=== PATIENT | female | born 1970 | race Caucasian/White ===

== ENCOUNTER 2016-07-24 10:48 | Outpatient (CLI) | payer OTHER | END 2016-07-24 10:49 | disposition home or self-care (01) | DX: Z12.31 Encounter for screening mammogram for malignant neoplasm of breast (principal) ==

== ENCOUNTER 2016-08-20 07:30 | Outpatient (CLI) | payer OTHER | END 2016-08-20 07:31 | DX: R35.0 Frequency of micturition (principal) ==

== ENCOUNTER 2016-08-27 07:30 | Outpatient (CLI) | payer OTHER | END 2016-08-27 07:31 | disposition home or self-care (01) | DX: R35.0 Frequency of micturition (principal) ==

== ENCOUNTER 2016-09-28 09:15 | Outpatient (CLI) | payer OTHER | END 2016-09-28 09:16 | disposition home or self-care (01) | LOC: LAB.R 09:15 | PROVIDERS: ATTEND Physician Assistant Medical | DX: R35.0 Frequency of micturition (principal) | CPT/HCPCS: 87086 ==

== ENCOUNTER 2017-04-03 09:30 | Outpatient (CLI) | payer OTHER | END 2017-04-03 09:31 | disposition home or self-care (01) | LOC: LAB.WCP 09:30 | PROVIDERS: ATTEND Physician Assistant Medical | DX: R35.0 Frequency of micturition (principal) | CPT/HCPCS: 87086 ==

== ENCOUNTER 2017-04-12 17:35 | Outpatient (CLI) | payer OTHER | END 2017-04-12 17:36 | disposition home or self-care (01) | LOC: LAB.R 17:35 | PROVIDERS: ATTEND Physician Assistant Medical | DX: R35.0 Frequency of micturition (principal) | CPT/HCPCS: 87086 ==

== ENCOUNTER 2017-06-14 08:00 | Outpatient (CLI) | payer OTHER ==
[2017-06-14 19:27] LABS: CALCIUM 8.8 mg/dL (8.5-10.3); CREATININE 0.7 mg/dL (0.4-1.0)
== END 2017-06-14 08:01 | disposition home or self-care (01) ==
LOC: LAB.R 08:00
PROVIDERS: ATTEND Family Medicine
DX: I10 Essential (primary) hypertension (principal)
CPT/HCPCS: 80048

== ENCOUNTER 2017-06-14 19:06 | Outpatient (CLI) | payer OTHER | END 2017-06-14 19:07 | disposition home or self-care (01) | LOC: LAB 19:06 | PROVIDERS: ATTEND Family Medicine | DX: Z53.9 Procedure and treatment not carried out, unspecified reason (principal) ==

== ENCOUNTER 2017-06-15 16:40 | Emergency (ER) | payer OTHER ==
[2017-06-15] MEDS ORDERED: LORazepam 2 MG/ML VIAL IVP STA (17:08)
[2017-06-15 17:18] LABS: BASOPHILS # (AUTO) 0.1 10^3/uL (0.0-0.1); BASOPHILS % (AUTO) 1.2 %; EOSINOPHILS # (AUTO) 0.1 10^3/uL (0.0-0.7); EOSINOPHILS % (AUTO) 0.9 %; LYMPHOCYTES # (AUTO) 2.7 10^3/uL (1.5-3.5); LYMPHOCYTES % (AUTO) 39.4 %; MEAN CORPUSCULAR HEMOGLOBIN 25.9 pg (27.0-31.0); MEAN CORPUSCULAR HGB CONC 31.7 g/dL (32.0-36.0); MEAN CORPUSCULAR VOLUME 81.5 fL (81.0-99.0); MEAN PLATELET VOLUME 6.8 fL (7.9-10.8); MONOCYTES # (AUTO) 0.8 10^3/uL (0.0-1.0); MONOCYTES % (AUTO) 11.5 %; NEUTROPHILS # (AUTO) 3.2 10^3/uL (1.5-6.6); PLT - PLATELET COUNT 395 10^3/uL (130-450); RED BLOOD COUNT 5.01 10^6/uL (4.20-5.40); RED CELL DISTRIBUTION WIDTH 15.1 % (12.0-15.0); WHITE BLOOD COUNT 6.8 x10^3/uL (4.8-10.8)
[2017-06-15 17:32] LABS: ALBUMIN 4.1 g/dL (3.2-5.5); ALBUMIN/GLOBULIN RATIO 1.1 (1.0-2.2); BILIRUBIN,TOTAL 0.5 mg/dL (0.2-1.0); CALCIUM 9.4 mg/dL (8.5-10.3); CREATININE 0.7 mg/dL (0.4-1.0)
--- NOTE | 2017-06-15 17:37 | ED Physician Documentation ---
History of Present Illness - Stated complaint Stated Complaint: CHEST PX - Chief complaint Chief Complaint: Cardiac - History obtained from History obtained from: Patient, Family - History of Present Illness Timing: Yesterday Pain level max: 3 Pain level now: 3 - Additonal information Additional information: Patient is a 46-year-old female who presents to the emergency department complaining of chest tightness yesterday and today. She states she feels lightheaded when she stands up. Feels like her vision is occasionally blurry. Has been under increasing amounts of stress lately. Her mother was recently diagnosed with cancer, she recently refinanced her house and is having other life stressors. She saw her PCP yesterday, normal EKG. Lab testing revealed a mild potassium deficiency which was replaced. She then returned for a follow- up today, given GI cocktail which helped her chest pain. She was also started on felodipine for hypertension, today when she got home she took her pulse and it was approximately 120 bpm and regular. She states that that has not happened to her before. Review of Systems Ten Systems: 10 systems reviewed and negative Constitutional: denies: Fever, Chills Ears: denies: Ear pain Nose: denies: Rhinorrhea / runny nose, Congestion Respiratory: denies: Cough, Wheezing GI: denies: Abdominal Pain, Nausea, Vomiting, Diarrhea Skin: denies: Rash Musculoskeletal: denies: Neck pain, Back pain Neurologic: denies: Headache PD PAST MEDICAL HISTORY - Past Medical History Past Medical History: Yes Cardiovascular: Hypertension GI: GERD - Past Surgical History Past Surgical History: No - Allergies Allergies/Adverse Reactions: Allergies Allergy/AdvReac Type Severity Reaction Status Date / Time cephradine Allergy Rash Verified 06/15/17 17:25 iodine Allergy Anaphylaxis Verified 18 17:18 cefradine Allergy Rash Uncoded 06/15/17 17:18 - Social History Does the pt smoke?: Yes Smoking Status: Former smoker Does the pt drink ETOH?: Yes Does the pt have substance abuse?: No - Immunizations Immunizations are current?: Yes PD ED PE NORMAL - Vitals Vital signs reviewed: Yes - General General: Alert and oriented X 3, No acute distress, Well developed/nourished - HEENT HEENT: PERRL, Moist mucous membranes - Neck Neck: Supple, no meningeal sign - Cardiac Cardiac: RRR, Strong equal pulses - Respiratory Respiratory: No respiratory distress, Clear bilaterally - Abdomen Abdomen: Soft, Non tender, Non distended - Derm Derm: Warm and dry, No rash - Extremities Extremities: No edema, No calf tenderness / cord - Neuro Neuro: Alert and oriented X 3 - Psych Psych: Normal mood, Normal affect Results - Vitals Vitals: Vital Signs - 24 hr 06/15/17 06/15/17 06/15/17 16:43 17:57 18:49 Temperature 37.2 C Heart Rate 105 H 86 82 Respiratory 20 18 14 Rate Blood Pressure 130/83 H 128/83 H 136/83 H O2 Saturation 97 98 98 06/15/17 20:19 Temperature 36.8 C Heart Rate 79 Respiratory 16 Rate Blood Pressure 130/86 H O2 Saturation 96 Oxygen O2 Source Room air - EKG (time done) 1655 Rate: Rate (enter#) (98) Rhythm: NSR [place]: Normal Intervals: Normal LA QRS: Normal Ischemia: Normal ST segments - Labs Labs: Laboratory Tests 06/15/17 06/15/17 06/15/17 17:08 17:08 17:08 WBC 6.8 RBC 5.01 Hgb 13.0 Hct 40.8 MCV 81.5 MCH 25.9 L MCHC 31.7 L RDW 15.1 H Plt Count 395 MPV 6.8 L Neut # 3.2 Lymph # 2.7 [place] # 0.8 Eos # 0.1 Baso # 0.1 Absolute Nucleated RBC 0.00 Nucleated RBC % 0.1 D-Dimer 421.0 H Sodium 138 Potassium 3.3 L Chloride 100 L Carbon Dioxide 24 Anion Gap 14.0 H BUN 11 Creatinine 0.7 Estimated GFR (MDRD) 89 Glucose 105 H Calcium 9.4 Total Bilirubin 0.5 AST 27 ALT 28 Alkaline Phosphatase 42 Troponin I Total Protein 8.0 Albumin 4.1 Globulin 3.9 Albumin/Globulin Ratio 1.1 Lipase 23 06/15/17 17:08 WBC RBC Hgb Hct MCV MCH MCHC RDW Plt Count MPV Neut # Lymph # [place] # Eos # Baso # Absolute Nucleated RBC Nucleated RBC % D-Dimer Sodium Potassium Chloride Carbon Dioxide Anion Gap BUN Creatinine Estimated GFR (MDRD) Glucose Calcium Total Bilirubin AST ALT Alkaline Phosphatase Troponin I < 0.04 Total Protein Albumin Globulin Albumin/Globulin Ratio Lipase - Rads (name of study) cxr Radiology: Prelim report reviewed, EMP read contemporaneously, See rad report ( No acute abnormality) CT pulmonary angiogram Radiology: Prelim report reviewed, EMP read contemporaneously, See rad report ( No pulmonary embolism) PD MEDICAL DECISION MAKING - ED course Complexity details: reviewed old records, reviewed results, re-evaluated patient , considered differential (No ST elevation [place], no aortic dissection, no PE, no tension pneumothorax, no aortic aneurysm), d/w patient, d/w family ED course: Patient is a 46-year-old female who presents to the emergency department with what sounds like anxiety and worsening stress at home. Negative troponin after greater than 2 days of symptoms. Normal EKG. Normal chest x-ray. She does have a history of superficial blood clots in the right arm and had an elevated d -dimer therefore a CT pulmonary angiogram was undertaken. She had a history of a reaction to CT contrast that was 24 hours after the contrast administration approximately 20 years ago, this resulted in some throat tightness that resolved with Benadryl. She was therefore premedicated with Solu-Medrol and Benadryl IV and a CT pulmonary angiogram was performed. She had no difficulties with this. No rashes, no dyspnea, no throat swelling or tightness. She will be at home with her family tonight and tomorrow. Will continue supportive care and follow-up with her doctor. We will have her stop the felodipine as well. We will have her to discuss with her doctor possible anxiety medication. Patient and family counseled regarding signs and symptoms for which I believe and urgent re-evaluation would be necessary. Patient with good understanding of and agreement to plan and is comfortable going home at this time This document was made in part using voice recognition software. While efforts are made to proofread this document, sound alike and grammatical errors may occur. Departure - Departure Disposition: 01 Home, Self Care Clinical Impression: Chest pain Qualifiers: Chest pain type: unspecified Qualified Code(s): R07.9 - Chest pain, unspecified Condition: Good Instructions: ED Chest Pain Atypical Unkn Cause Follow-Up: Dolly Hernandez MD [Primary Care Provider] - Within 1 week Comments: Your tests are normal today. Return if you worsen. Stop the felodipine. Discharge Date/Time: 06/15/17 20:27
--- NOTE | 2017-06-15 18:09 | XRAY Report ---
EXAM: CHEST RADIOGRAPHY EXAM DATE: 06/15/2017 05:26 PM. CLINICAL HISTORY: Chest pain and tachycardia. COMPARISON: None available. TECHNIQUE: 1 view. FINDINGS: Lungs/Pleura: No focal opacities evident. No pleural effusion. No pneumothorax. Mediastinum: Within exam limitations, the cardiomediastinal contour is normal. Other: None. IMPRESSION: Grossly clear. [facility] Referring Provider Line: [phone] SITE ID: [id number]
[2017-06-15] MEDS ORDERED: diphenhydrAMINE INJ 50 MG/ML VIAL IVP STA (18:24)
[2017-06-15] MEDS ORDERED: methylPREDNISolone SUCCINATE 125 MG/2 ML VIAL IVP STA (18:24)
[2017-06-15] MEDS ORDERED: IOPAMIDOL-300 100 ML VIAL ONE (18:57)
[2017-06-15] MEDS ORDERED: IOPAMIDOL-300 100 ML VIAL IVP ONE (19:18)
--- NOTE | 2017-06-15 19:52 | CT Report ---
EXAM: CT ANGIOGRAM CHEST EXAM DATE: 06/15/2017 07:19 PM. CLINICAL HISTORY: Chest pain, elevated d-dimer. COMPARISON: Chest radiograph, same day. TECHNIQUE: Routine helical imaging was performed through the chest in the pulmonary arterial phase. I V Contrast: 80 mL Isovue 300. Reconstructions: Coronal 3-D MIP reconstructions.Sagittal and coronal. In accordance with CT protocol optimization, one or more of the following dose reduction techniques w ere utilized for this exam: automated exposure control, adjustment of mA and/or KV based on patient s ize, or use of iterative reconstructive technique. FINDINGS: Pulmonary Arteries: Diagnostic quality: Mildly motion degraded but overall adequate through the segmental arteries. No ev idence for acute or chronic pulmonary emboli. Low lung findings with patchy groundglass density atele ctasis. RV/LV is within normal limits. There is no interventricular septal bowing. There is no reflux of cont rast material in the IVC. Lungs/Pleura: No consolidation, nodules, or edema. No effusions or pneumothorax. Mediastinum: Normal. No cardiac enlargement or adenopathy. Thoracic Aorta: Unremarkable. Upper Abdomen: Small nonobstructing calculus in the upper pole of the left kidney series 5 image 135 measuring 0.3 cm. Other: No acute skeletal abnormalities. IMPRESSION: 1. Negative for evidence of pulmonary embolism. 2. No acute intrathoracic abnormality. [facility] Referring Provider Line: [phone] SITE ID: [id number]
[2017-06-15 23:19] VITALS: BP 130/86
== END 2017-06-15 20:27 | disposition home or self-care (01) ==
LOC: ED 16:40
DX: R07.9 Chest pain, unspecified (principal); I10 Essential (primary) hypertension; Z87.891 Personal history of nicotine dependence
CPT/HCPCS: 36415; 71045; 71275; 80053; 83690; 84484; 85025; 85379; 93005; 96374; 96375; 99284; J2060; Q9967

== ENCOUNTER 2017-06-26 14:49 | Outpatient (CLI) | payer OTHER ==
[2017-06-26 18:55] LABS: BASOPHILS % (AUTO) 0.7 %; EOSINOPHILS % (AUTO) 0.4 %; HGB - HEMOGLOBIN 12.6 g/dL (12.0-16.0); MEAN CORPUSCULAR HEMOGLOBIN 26.4 pg (27.0-31.0); MEAN CORPUSCULAR HGB CONC 32.4 g/dL (32.0-36.0); MEAN CORPUSCULAR VOLUME 81.6 fL (81.0-99.0); MEAN PLATELET VOLUME 7.6 fL (7.9-10.8); MONOCYTES # (AUTO) 0.8 10^3/uL (0.0-1.0); MONOCYTES % (AUTO) 12.7 %; NEUTROPHILS # (AUTO) 3.7 10^3/uL (1.5-6.6); NEUTROPHILS % (AUTO) 56.2 %; PLT - PLATELET COUNT 415 10^3/uL (130-450); RED BLOOD COUNT 4.78 10^6/uL (4.20-5.40); RED CELL DISTRIBUTION WIDTH 15.8 % (12.0-15.0); WHITE BLOOD COUNT 6.5 x10^3/uL (4.8-10.8)
[2017-06-26 19:06] LABS: HB2 TOTAL 13.3 g/dL; HEMOGLOBIN A1C 0.49 g/dL; HEMOGLOBIN A1C % 5.5 % (4.6-6.2)
[2017-06-26 19:11] LABS: ALBUMIN 3.9 g/dL (3.2-5.5); ALBUMIN/GLOBULIN RATIO 1.1 (1.0-2.2); ALKALINE PHOSPHATASE 41 IU/L (42-121); ALT ALANINE AMINOTRANSFERASE 19 IU/L (10-60); AST ASPARTATE AMINOTRANSFERASE 20 IU/L (10-42); BILIRUBIN,TOTAL 0.6 mg/dL (0.2-1.0); BUN - BLOOD UREA NITROGEN 14 mg/dL (6-20); CARBON DIOXIDE - CO2 25 mmol/L (21-32); CHLORIDE 102 mmol/L (101-111); CHOL/HDL RATIO 3.6 (<4.4); CHOLESTEROL 144 mg/dL; CREATININE 0.8 mg/dL (0.4-1.0); GFR - MDRD 77 (>89); GLUCOSE 102 mg/dL (70-100); HDL CHOLESTEROL 40 mg/dL; LDL CHOLESTEROL,CALCULATED 53 mg/dL; LDL/HDL RATIO 1.3 (<4.4); MAGNESIUM 2.1 mg/dL (1.7-2.8); SODIUM 135 mmol/L (135-145); TOTAL PROTEIN 7.6 g/dL (6.7-8.2); VLDL CHOLESTEROL 51 mg/dL
== END 2017-06-26 14:50 | disposition home or self-care (01) ==
LOC: LAB.WCP 14:49
PROVIDERS: ATTEND Family Medicine
DX: Z00.00 Encounter for general adult medical examination without abnormal findings (principal); I10 Essential (primary) hypertension
CPT/HCPCS: 36415; 80053; 80061; 83036; 83721; 83735; 84443; 85025

== ENCOUNTER 2017-08-01 11:15 | Outpatient (CLI) | payer OTHER ==
--- NOTE | 2017-08-02 09:33 | Mammography Report ---
DIGITAL SCREENING MAMMOGRAM: 08/01/2017 HISTORY: Benign left breast biopsy. TECHNIQUE: Bilateral digital CC and MLO projections. COMPARISON: 07/24/2016, 06/15/2015, 03/10/2013 and 06/19/2011. FINDINGS: There are scattered fibroglandular densities. No new dominant mass, architectural distortion, skin thickening, suspicious microcalcifications or interval change. Postbiopsy changes left breast and intramammary lymph nodes right breast as before. IMPRESSION: NEGATIVE. BI-RADS CODE 1-NEGATIVE. SUGGEST RETURN TO ROUTINE SCREENING IN 12 MONTHS. STANDARD QUALIFYING STATEMENTS: 1. This examination was reviewed with the aid of Computer-Aided Detection (CAD). 2. A negative or benign imaging report should not delay biopsy if clinically suspicious findings are present. Consider surgical consultation if warranted. More than 5% of cancers are not identified by imaging. 3. Dense breasts may obscure an underlying neoplasm. TD: 08/02/2017 09:31
== END 2017-08-01 11:16 | disposition home or self-care (01) ==
LOC: DI.N 11:15
PROVIDERS: ATTEND Physician Assistant Medical
DX: Z12.31 Encounter for screening mammogram for malignant neoplasm of breast (principal)
CPT/HCPCS: 77067

== ENCOUNTER 2017-09-26 07:41 | Outpatient (CLI) | payer OTHER ==
[2017-09-26 12:40] LABS: CALCIUM 8.9 mg/dL (8.5-10.3); CREATININE 0.7 mg/dL (0.4-1.0)
== END 2017-09-26 07:42 | disposition home or self-care (01) ==
LOC: LAB.WCP 07:41
PROVIDERS: ATTEND Physician Assistant Medical
DX: I10 Essential (primary) hypertension (principal); E87.6 Hypokalemia
CPT/HCPCS: 36415; 80048; 82088; 84244

== ENCOUNTER 2017-09-30 06:00 | Outpatient (CLI) | payer OTHER ==
[2017-10-03 18:41] LABS: CALCULATED TOTAL (E+NE) URINE 15 (9-74); DOPAMINE URINE 91 (40-390); EPINEPHRINE URINE <2 (2-16); NOREPINEPHRINE URINE 15 (7-65)
[2017-10-05 22:42] LABS: METANEPHRINE 73 mcg/24 h (58-203); NORMETANEPHRINE 211 mcg/24 h (88-649); TOTAL VOLUME 2000 mL
== END 2017-09-30 06:01 | disposition home or self-care (01) ==
LOC: LAB.WCP 06:00
PROVIDERS: ATTEND Physician Assistant Medical
DX: I10 Essential (primary) hypertension (principal)
CPT/HCPCS: 82384; 83835

== ENCOUNTER 2017-10-03 19:51 | Outpatient (CLI) | payer OTHER ==
--- NOTE | 2017-10-04 11:43 | Ultrasound Report ---
RENAL ULTRASOUND: 10/03/2017 HISTORY: Benign essential hypertension. TECHNIQUE: Real-time sonographic vascular imaging was performed by the patternmaker all around through the renal arteries utilizing both color-flow and Doppler flow analysis. Multiple brand representative static images were saved for review. RT KIDNEY RENAL SIZE LT KIDNEY RENAL SIZE Size: 11.9 x 5.5 x 4.8 cm Size: 11.4 x 5.0 x 5.5 cm SEGMENTAL ARTERY SEGMENTAL ARTERY PSV RI PSV RI Upper Pole 56 0.9 Upper Pole 60 0.7 Mid Pole 52.3 0.7 Mid Pole 48.6 0.8 Lower Pole 56.8 0.7 Lower Pole 46.7 0.6 RIGHT RENAL ARTERY LEFT RENAL ARTERY PSV RENAL ARTERY/ AORTA RATIO (RA/AO) PSV RENAL ARTERY/ AORTA RATIO (RA/AO) Origin: 71.4 0.7 Origin: 84 0.8 Proximal: 88 0.9 Proximal: 50.8 0.5 Mid: 283 2.8 Mid: 174 1.7 Distal: 104 1.0 Distal: 97 0.9 PROX AORTA PSV: 101 cm/sec RRV patent: yes LRV patent: yes CRITERIA FOR CLASSIFICATION OF RENAL ARTERY DISEASE BY DUPLEX SCANNING Source: Criteria for Classification of Renal Artery Disease by Duplex Scanning [facility] Duplex Scanning In Vascular Disorders, 4th ed. 2010. Print. RENAL ARTERY DIAMETER REDUCTION RENAL ARTERY PSV RAR Normal < 180 cm/sec < 3.5 < 60% >/= 180 cm/sec < 3.5 >/= 60% >/= 180 cm/sec >/= 3.5 Occlusion (100%) No signal No signal IMPRESSION: NEGATIVE RENAL ARTERIAL DOPPLER ULTRASOUND. [facility]
== END 2017-10-03 19:52 | disposition home or self-care (01) ==
LOC: DI 19:51
PROVIDERS: ATTEND Physician Assistant Medical
DX: I10 Essential (primary) hypertension (principal)
CPT/HCPCS: 93975

== ENCOUNTER 2017-10-03 20:51 | Emergency (ER) | payer OTHER ==
[2017-10-03] MEDS ORDERED: SODIUM CHLORIDE 0.9% 1,000 ML IV ONE (21:35)
[2017-10-03 21:41] LABS: BASOPHILS % (AUTO) 0.5 %; EOSINOPHILS # (AUTO) 0.1 10^3/uL (0.0-0.7); EOSINOPHILS % (AUTO) 0.7 %; HGB - HEMOGLOBIN 12.2 g/dL (12.0-16.0); LYMPHOCYTES # (AUTO) 2.7 10^3/uL (1.5-3.5); LYMPHOCYTES % (AUTO) 37.6 %; MEAN CORPUSCULAR HEMOGLOBIN 26.6 pg (27.0-31.0); MEAN CORPUSCULAR HGB CONC 32.2 g/dL (32.0-36.0); MEAN CORPUSCULAR VOLUME 82.6 fL (81.0-99.0); MEAN PLATELET VOLUME 7.2 fL (7.9-10.8); MONOCYTES # (AUTO) 0.8 10^3/uL (0.0-1.0); MONOCYTES % (AUTO) 11.3 %; NEUTROPHILS # (AUTO) 3.6 10^3/uL (1.5-6.6); NEUTROPHILS % (AUTO) 49.9 %; PLT - PLATELET COUNT 374 10^3/uL (130-450); RED BLOOD COUNT 4.59 10^6/uL (4.20-5.40); RED CELL DISTRIBUTION WIDTH 14.7 % (12.0-15.0); WHITE BLOOD COUNT 7.2 x10^3/uL (4.8-10.8)
[2017-10-03 21:42] LABS: BILIRUBIN,URINE NEGATIVE (NEGATIVE); GLUCOSE, URINE (UA) NEGATIVE (NEGATIVE); KETONES,URINE (UA) NEGATIVE (NEGATIVE); LEUKOCYTE ESTERASE, URINE NEGATIVE (NEGATIVE); NITRITE,URINE NEGATIVE (NEGATIVE); OCCULT BLOOD,URINE NEGATIVE (NEGATIVE); PROTEIN,URINE NEGATIVE (NEGATIVE); UROBILINOGEN,URINE 0.2 (NORMAL) E.U./dL (NORMAL)
[2017-10-03 21:43] LABS: CLARITY,URINE CLEAR (CLEAR)
[2017-10-03 21:52] LABS: ALBUMIN 3.6 g/dL (3.2-5.5); ALBUMIN/GLOBULIN RATIO 0.9 (1.0-2.2); BILIRUBIN,TOTAL 0.7 mg/dL (0.2-1.0); CALCIUM 8.7 mg/dL (8.5-10.3); CREATININE 0.8 mg/dL (0.4-1.0); PHOSPHORUS 2.8 mg/dL (2.5-4.6); TOTAL PROTEIN 7.4 g/dL (6.7-8.2)
[2017-10-03 22:11] LABS: HCG UR QUAL NEGATIVE
[2017-10-03] MEDS ORDERED: hydrALAZINE INJ 20 MG/ML VIAL IVP STA (22:18)
[2017-10-03] MEDS ORDERED: POTASSIUM BICARB 25 MEQ TABLET PO STA (22:18)
--- NOTE | 2017-10-03 22:52 | XRAY Report ---
EXAM: CHEST RADIOGRAPHY EXAM DATE: 10/03/2017 10:22 PM. CLINICAL HISTORY: Chest pain. COMPARISON: Chest 06/15/2017. TECHNIQUE: 1 view. FINDINGS: Lungs/Pleura: No focal opacities evident. No pleural effusion. No pneumothorax. Mediastinum: Within exam limitations, the cardiomediastinal contour is normal. Other: None. IMPRESSION: Normal single view chest. [facility] Referring Provider Line: [phone] SITE ID: [id number]
--- NOTE | 2017-10-03 22:52 | XRAY Preliminary Report ---
Exam: XR CHEST 1 VIEW X-RAY IMPRESSION: Normal single view chest. [facility] SITE ID: [id number]
[2017-10-03] MEDS ORDERED: ACETAMINOPHEN 500 MG TABLET PO STA (22:55)
[2017-10-03] MEDS ORDERED: ONDANSETRON 4 MG/2 ML VIAL IVP STA (22:55)
--- NOTE | 2017-10-03 23:02 | ED Physician Documentation ---
History of Present Illness - Stated complaint Stated Complaint: NAUSEA/DIZZY/HEADACHE - Chief complaint Chief Complaint: General - History obtained from History obtained from: Patient - History of Present Illness Timing: How many weeks ago (8) - Additonal information Additional information: Patient is a 46 year old female with a history of long standing htn who is presenting to the emergency department for generally not feeling well. patient states that over the last 5 months she has had intermittent bouts of hypertension. sometimes she gets dizzy, some times she gets chest pain. Patient has been follow up with her doctor regularly and they have been trying to find the underlying cause. Patient states that this weekend she was feeling ok, but drank a little too much wine. Patient states that has not been feeling well since then. patient saw her pmd today and was coming to the hospital for a renal artery ultrasound. Patient states that she was just feeling lousy so she came to the emergency department for evaluation. Review of Systems Constitutional: reports: Chills, Sweats. denies: Fever Eyes: reports: Photophobia Ears: reports: Reviewed and negative Nose: denies: Rhinorrhea / runny nose, Congestion Throat: denies: Sore throat Cardiac: reports: Chest pain / pressure. denies: Palpitations, Calf pain Respiratory: denies: Dyspnea, Cough GI: reports: Nausea. denies: Vomiting, Constipation, Diarrhea : denies: Dysuria, Frequency Skin: denies: Rash, Lesions Musculoskeletal: reports: Neck pain, Joint pain. denies: Extremity pain Neurologic: reports: Generalized weakness, Headache. denies: Focal weakness, Numbness, Head injury, LOC Immunocompromised: denies: Immunocompromised PD PAST MEDICAL HISTORY - Past Medical History Past Medical History: Yes Cardiovascular: Hypertension GI: GERD - Past Surgical History Past Surgical History: No - Present Medications Home Medications: Ambulatory Orders Medication Instructions Recorded Confirmed Metoprolol Tartrate 25 mg PO BID 10/03/17 10/03/17 Ondansetron Odt [Zofran] 4 mg TL Q6H PRN #20 tablet 10/03/17 Pantoprazole Sodium [Protonix] 20 mg PO DAILY 10/03/17 10/03/17 Valsartan [Diovan] 160 mg PO BID 10/03/17 10/03/17 - Allergies Allergies/Adverse Reactions: Allergies Allergy/AdvReac Type Severity Reaction Status Date / Time cephradine Allergy Rash Verified 10/03/17 21:00 iodine Allergy Anaphylaxis Verified 10/03/17 21:00 amlodipine AdvReac Anxiety Verified 10/03/17 22:28 cefradine Allergy Rash Uncoded 10/03/17 21:00 - Social History Does the pt smoke?: No Smoking Status: Never smoker Does the pt drink ETOH?: Yes Does the pt have substance abuse?: No - Immunizations Immunizations are current?: Yes - POLST Patient has POLST: No PD ED PE NORMAL - Vitals Vital signs reviewed: Yes - General General: Alert and oriented X 3, Well developed/nourished - HEENT HEENT: Atraumatic, PERRL, Ears normal, Moist mucous membranes - Neck Neck: Supple, no meningeal sign, No adenopathy, No JVD - Cardiac Cardiac: RRR, No murmur - Respiratory Respiratory: No respiratory distress, Clear bilaterally - Abdomen Abdomen: Soft, Non tender, Non distended - Derm Derm: Normal color, No rash - Extremities Extremities: No deformity, No calf tenderness / cord - Neuro Neuro: Alert and oriented X 3, pharmacognosist 2-12 intact, No motor deficit, Normal speech Eye Opening: Spontaneous Motor: Obeys Commands Verbal: Oriented GCS Score: 15 Results - Vitals Vitals: Vital Signs - 24 hr 10/03/17 10/03/17 10/03/17 20:54 22:29 22:54 Temperature 36.3 C L Heart Rate 81 65 75 Respiratory 19 12 18 Rate Blood Pressure 173/101 H 163/96 H 140/79 H O2 Saturation 100 100 100 10/03/17 23:29 Temperature Heart Rate 68 Respiratory 12 Rate Blood Pressure 130/79 O2 Saturation 99 Oxygen O2 Source Room air - EKG (time done) 2116 Rate: Rate (enter#) (75) Rhythm: NSR [place]: Normal Intervals: Normal ND Compare to prior EKG: Unchanged from prior EKG - Labs Labs: Laboratory Tests 10/03/17 10/03/17 10/03/17 21:12 21:12 21:12 WBC 7.2 RBC 4.59 Hgb 12.2 Hct 37.9 MCV 82.6 MCH 26.6 L MCHC 32.2 RDW 14.7 Plt Count 374 MPV 7.2 L Neut # (Auto) 3.6 Lymph # (Auto) 2.7 [place] # (Auto) 0.8 Eos # (Auto) 0.1 Baso # (Auto) 0.0 Absolute Nucleated RBC 0.01 Nucleated RBC % 0.1 Sodium 138 Potassium 3.1 L Chloride 104 Carbon Dioxide 25 Anion Gap 9.0 BUN 15 Creatinine 0.8 Estimated GFR (MDRD) 77 L Glucose 91 Calcium 8.7 Phosphorus 2.8 Magnesium 2.0 Total Bilirubin 0.7 AST 21 ALT 20 Alkaline Phosphatase 43 Troponin I < 0.04 B-Natriuretic Peptide Total Protein 7.4 Albumin 3.6 Globulin 3.8 Albumin/Globulin Ratio 0.9 L Lipase 27 TSH Urine Color Urine Clarity Urine pH Ur Specific [place] Urine Protein Urine Glucose (UA) Urine Ketones Urine Occult Blood Urine Nitrite Urine Bilirubin Urine Urobilinogen Ur Leukocyte Esterase Ur Microscopic Review Urine Culture Comments Urine HCG, Qual 10/03/17 10/03/17 10/03/17 21:12 21:12 21:37 WBC RBC Hgb Hct MCV MCH MCHC RDW Plt Count MPV Neut # (Auto) Lymph # (Auto) [place] # (Auto) Eos # (Auto) Baso # (Auto) Absolute Nucleated RBC Nucleated RBC % Sodium Potassium Chloride Carbon Dioxide Anion Gap BUN Creatinine Estimated GFR (MDRD) Glucose Calcium Phosphorus Magnesium Total Bilirubin AST ALT Alkaline Phosphatase Troponin I B-Natriuretic Peptide 15 Total Protein Albumin Globulin Albumin/Globulin Ratio Lipase TSH 1.40 Urine Color YELLOW Urine Clarity CLEAR Urine pH 6.0 Ur Specific [place] <=1.005 Urine Protein NEGATIVE Urine Glucose (UA) NEGATIVE Urine Ketones NEGATIVE Urine Occult Blood NEGATIVE Urine Nitrite NEGATIVE Urine Bilirubin NEGATIVE Urine Urobilinogen 0.2 (NORMAL) Ur Leukocyte Esterase NEGATIVE Ur Microscopic Review NOT INDICATED Urine Culture Comments NOT INDICATED Urine HCG, Qual 10/03/17 21:37 WBC RBC Hgb Hct MCV MCH MCHC RDW Plt Count MPV Neut # (Auto) Lymph # (Auto) [place] # (Auto) Eos # (Auto) Baso # (Auto) Absolute Nucleated RBC Nucleated RBC % Sodium Potassium Chloride Carbon Dioxide Anion Gap BUN Creatinine Estimated GFR (MDRD) Glucose Calcium Phosphorus Magnesium Total Bilirubin AST ALT Alkaline Phosphatase Troponin I B-Natriuretic Peptide Total Protein Albumin Globulin Albumin/Globulin Ratio Lipase TSH Urine Color Urine Clarity Urine pH Ur Specific [place] <1.005 Urine Protein Urine Glucose (UA) Urine Ketones Urine Occult Blood Urine Nitrite Urine Bilirubin Urine Urobilinogen Ur Leukocyte Esterase Ur Microscopic Review Urine Culture Comments Urine HCG, Qual NEGATIVE - Rads (name of study) chest x-ray Radiology: Final report received (no acute abnormality) PD MEDICAL DECISION MAKING - ED course Complexity details: reviewed old records, reviewed results, re-evaluated patient , considered differential, d/w patient ED course: Patient was seen and examined at bedside. Patient was hypertensive. IV access was gained and labs were drawn. ekg was performed and showed no acute ischemic changes. patient was treated with a liter bolus and hydralizine. When patient' s labs came back she was found to be mildly hypokalemic. patient's potassium was replaced. patient's blood pressure improved. Patient was treated with tylenol for a headache and zofran. Patient's chest x-ray was normal. The etiology of patient's six months of symptoms was still unclear but patient was stable for discharge with outpatient follow up. - Sepsis Event Vital Signs: Vital Signs - 24 hr 10/03/17 10/03/17 10/03/17 20:54 22:29 22:54 Temperature 36.3 C L Heart Rate 81 65 75 Respiratory 19 12 18 Rate Blood Pressure 173/101 H 163/96 H 140/79 H O2 Saturation 100 100 100 10/03/17 23:29 Temperature Heart Rate 68 Respiratory 12 Rate Blood Pressure 130/79 O2 Saturation 99 Oxygen O2 Source Room air Departure - Departure Disposition: 01 Home, Self Care Clinical Impression: Hypokalemia, HTN (hypertension) Condition: Good Instructions: ED HTN Established Follow-Up: Ananya Lance PA-C [Primary Care Provider] - Tomorrow Prescriptions: Ondansetron Odt [Zofran] 4 mg TL Q6H PRN #20 tablet PRN Reason: Nausea / Vomiting Comments: Your diagnostics today were within normal limits aside from a slightly low potassium. I think that you are doing the right thing checking for renal artery stenosis, also checking for pheochromocytoma. You have been prescribed zofran for nausea. you should make sure you are getting plenty of sleep and staying hydrated. You should follow up with your doctor tomorrow for the results of your ultrasound. You may return to the emergency department at any time for new, worsening or uncontrollable symptoms. Forms: Activity restrictions Discharge Date/Time: 10/03/17 23:41
[2017-10-03 23:29] VITALS: BP 130/79
== END 2017-10-03 23:41 | disposition home or self-care (01) ==
LOC: ED 20:51
DX: E87.6 Hypokalemia (principal); I10 Essential (primary) hypertension
CPT/HCPCS: 36415; 71045; 80053; 81003; 81025; 83690; 83735; 83880; 84100; 84443; 84484; 85025; 93005; 96361; 96374; 96375; 99283; 99284; A9270; 81001; 87086; 93975

== ENCOUNTER 2017-11-01 07:51 | Outpatient (CLI) | payer OTHER ==
[2017-11-01 12:57] LABS: BUN - BLOOD UREA NITROGEN 16 mg/dL (6-20); CALCIUM 8.7 mg/dL (8.5-10.3); CARBON DIOXIDE - CO2 23 mmol/L (21-32); CHLORIDE 103 mmol/L (101-111); CHOL/HDL RATIO 3.1 (<4.4); CHOLESTEROL 157 mg/dL; CREATININE 0.7 mg/dL (0.4-1.0); GFR - MDRD 89 (>89); GLUCOSE 80 mg/dL (70-100); HDL CHOLESTEROL 50 mg/dL; LDL CHOLESTEROL,CALCULATED 67 mg/dL; LDL/HDL RATIO 1.3 (<4.4); SODIUM 135 mmol/L (135-145); VLDL CHOLESTEROL 40 mg/dL
== END 2017-11-01 07:52 | disposition home or self-care (01) ==
LOC: LAB.WCP 07:51
PROVIDERS: ATTEND Physician Assistant Medical
DX: R42 Dizziness and giddiness (principal); E78.5 Hyperlipidemia, unspecified; D25.9 Leiomyoma of uterus, unspecified
CPT/HCPCS: 36415; 80048; 80061; 83001; 83721

== ENCOUNTER 2017-11-10 08:20 | Outpatient (CLI) | payer OTHER | END 2017-11-10 08:21 | disposition home or self-care (01) | LOC: DI 08:20 | PROVIDERS: ATTEND Physician Assistant Medical | DX: R42 Dizziness and giddiness (principal); R00.0 Tachycardia, unspecified; I51.7 Cardiomegaly | CPT/HCPCS: 93306 ==

== ENCOUNTER 2018-02-13 08:12 | Outpatient (CLI) | payer OTHER ==
--- NOTE | 2018-02-13 11:20 | CARDIAC PROCEDURE NOTE ---
DATE OF SERVICE: 02/13/2018 Physician: Jaymie Cotton MD, [facility] INDICATION: Labile hypertension. CARDIAC RISK FACTORS: Hypertension, family history. After signing informed consent, the patient exercised on a Marcos protocol treadmill stress test. The patient exercised for 5 minutes and 40 seconds. She achieved a peak heart rate of 135 (78% predicted maximal heart rate for age), 7.1 METS. The exercise was stopped before achieving target heart rate due to excessive systolic blood pressure increase. Resting heart rate 65, peak heart rate 135 (78% PMHR). Resting blood pressure 148/100. Peak blood pressure 205/80. RESTING EKG: Normal sinus rhythm, poor R-wave progression. PEAK EKG: Scooping ST segment depressions in V2 through V6, new T-wave flattening in V5 and V6 and in leads III and aVF. These changes returned to baseline after 4 minutes. IMPRESSION 1. Fair exercise tolerance. 2. Abnormal resting EKG. 3. Excessive systolic blood pressures response to exercise, despite taking valsartan (Coreg was not taken). 4. Abnormal EKG changes suggestive of ischemia. RECOMMENDATIONS: Consider coronary angiography if indicated, versus repeat testing with imaging (stress echo or nuclear stress imaging). cc: Sang Millard TD: 02/13/2018 11:07 HOLLIS
== END 2018-02-13 08:13 | disposition home or self-care (01) ==
LOC: DI 08:12
PROVIDERS: ATTEND Internal Medicine Cardiovascular Disease
DX: I10 Essential (primary) hypertension (principal); R94.31 Abnormal electrocardiogram [ECG] [EKG]; Z53.9 Procedure and treatment not carried out, unspecified reason

== ENCOUNTER 2018-07-10 08:00 | Outpatient (CLI) | payer BC, OTHER | END 2018-07-10 23:59 | LOC: LAB.WCP 08:00 | PROVIDERS: ATTEND Physician Assistant Medical | DX: J06.9 Acute upper respiratory infection, unspecified (principal) | CPT/HCPCS: 87275; 87276 ==

== ENCOUNTER 2018-08-12 07:14 | Outpatient (CLI) | payer BC ==
[2018-08-12 12:32] LABS: ALBUMIN 3.6 g/dL (3.2-5.5); ALKALINE PHOSPHATASE 40 IU/L (42-121); ALT ALANINE AMINOTRANSFERASE 24 IU/L (10-60); AST ASPARTATE AMINOTRANSFERASE 25 IU/L (10-42); BILIRUBIN,TOTAL 0.7 mg/dL (0.2-1.0); BUN - BLOOD UREA NITROGEN 15 mg/dL (6-20); CALCIUM 8.8 mg/dL (8.5-10.3); CARBON DIOXIDE - CO2 25 mmol/L (21-32); CHLORIDE 105 mmol/L (101-111); CHOLESTEROL 175 mg/dL; CREATININE 0.7 mg/dL (0.4-1.0); GFR - MDRD 89 (>89); GLUCOSE 92 mg/dL (70-100); HDL CHOLESTEROL 58 mg/dL; LDL CHOLESTEROL,CALCULATED 83 mg/dL; LDL/HDL RATIO 1.4 (<4.4); SODIUM 139 mmol/L (135-145); TOTAL PROTEIN 7.1 g/dL (6.7-8.2); VLDL CHOLESTEROL 34 mg/dL
[2018-08-12 12:36] LABS: BASOPHILS # (AUTO) 0.1 10^3/uL (0.0-0.1); EOSINOPHILS # (AUTO) 0.1 10^3/uL (0.0-0.7); EOSINOPHILS % (AUTO) 1.2 %; HGB - HEMOGLOBIN 11.9 g/dL (12.0-16.0); LYMPHOCYTES # (AUTO) 2.1 10^3/uL (1.5-3.5); LYMPHOCYTES % (AUTO) 43.1 %; MEAN CORPUSCULAR HEMOGLOBIN 25.7 pg (27.0-31.0); MEAN CORPUSCULAR HGB CONC 31.5 g/dL (32.0-36.0); MEAN CORPUSCULAR VOLUME 81.4 fL (81.0-99.0); MEAN PLATELET VOLUME 7.2 fL (7.9-10.8); MONOCYTES # (AUTO) 0.6 10^3/uL (0.0-1.0); MONOCYTES % (AUTO) 11.5 %; NEUTROPHILS # (AUTO) 2.1 10^3/uL (1.5-6.6); NEUTROPHILS % (AUTO) 43.2 %; PLT - PLATELET COUNT 379 10^3/uL (130-450); RED BLOOD COUNT 4.62 10^6/uL (4.20-5.40); RED CELL DISTRIBUTION WIDTH 16.4 % (12.0-15.0); WHITE BLOOD COUNT 4.8 x10^3/uL (4.8-10.8)
== END 2018-08-12 07:15 | disposition home or self-care (01) ==
LOC: LAB.WCP 07:14
PROVIDERS: ATTEND Physician Assistant Medical
DX: E78.5 Hyperlipidemia, unspecified (principal); K21.9 Gastro-esophageal reflux disease without esophagitis
CPT/HCPCS: 36415; 80053; 80061; 83721; 84443; 85025

== ENCOUNTER 2018-08-21 11:26 | Outpatient (CLI) | payer BC ==
--- NOTE | 2018-08-21 15:02 | Mammography Report ---
Reason: SCREENING MAMMO Procedure Date: 08/21/2018 Accession Number: [id number] / [id number] Procedure: MGN - Screening Mammo Dig Bilat CPT Code: FULL RESULT: EXAM: Screening Mammo Dig Bilat DATE: 08/21/2018 11:50 AM CLINICAL HISTORY: Screening examination. History of benign left breast biopsy. No reported risk factors. TECHNIQUE: (B) - Bilateral CC and MLO views were obtained. COMPARISON: 07/16/2016 through 03/10/2013. PARENCHYMAL PATTERN: (A) - The breast(s) demonstrate(s) scattered fibroglandular densities. FINDINGS: Postbiopsy changes of the left breast are redemonstrated. A cluster of nodules in the right upper outer breast demonstrates greater than 2 year stability, typically benign. There are no suspicious masses, calcifications, or areas of distortion. IMPRESSION: Benign findings. BI-RADS category 2. RECOMMENDATION: (ANNUAL) - Recommend routine annual screening mammography. BI-RADS CATEGORY: (2) - Benign Findings. STANDARD QUALIFYING STATEMENTS: 1. This examination was not reviewed with the aid of Computer-Aided Detection (CAD). 2. A negative or benign imaging report should not preclude biopsy if clinically suspicious findings are present. 3. Dense breasts may obscure an underlying neoplasm. 4. This examination was reviewed without the aid of 3D breast imaging (tomosynthesis).
== END 2018-08-21 11:27 | disposition home or self-care (01) ==
LOC: DI.N 11:26
DX: Z12.31 Encounter for screening mammogram for malignant neoplasm of breast (principal)
CPT/HCPCS: 77067

== ENCOUNTER 2018-10-10 08:00 | Outpatient (CLI) | payer BC | END 2018-10-10 23:59 | disposition home or self-care (01) | LOC: LAB.R 08:00 | PROVIDERS: ATTEND Physician Assistant | DX: N39.0 Urinary tract infection, site not specified (principal) | CPT/HCPCS: 87086; 87181 ==

== ENCOUNTER 2019-02-05 08:00 | Outpatient (CLI) | payer BC ==
[2019-02-05 21:24] LABS: CANDIDA GROUP DNA NEGATIVE (NEGATIVE); CANDIDA KRUSEI DNA NEGATIVE (NEGATIVE); TRICHOMONAS VAGINALIS DNA NEGATIVE (NEGATIVE)
[2019-02-05 22:24] LABS: TRICHOMONAS VAGINALIS DNA NEGATIVE (NEGATIVE)
== END 2019-02-05 23:59 ==
LOC: LAB.R 08:00
PROVIDERS: ATTEND Physician Assistant Medical
DX: N39.0 Urinary tract infection, site not specified (principal); N76.0 Acute vaginitis
CPT/HCPCS: 87086; 87491; 87591; 87661; 87801

== ENCOUNTER 2019-02-26 09:39 | Outpatient (CLI) | payer BC ==
--- NOTE | 2019-02-26 12:34 | Ultrasound Report ---
Reason: UTERINE FIBROIDS Procedure Date: 02/26/2019 Accession Number: [id number] / [id number] Procedure: US - Pelvic w/Transvaginal CPT Code: Final Report FULL RESULT: EXAM: PELVIC ULTRASOUND EXAM DATE: 02/26/2019 10:49 AM. CLINICAL HISTORY: UTERINE FIBROIDS. COMPARISON: ABDOMEN COMPLETE 02/04/2016 1:04 PM [employer]IST 03/11/2014 11:10 AM. TECHNIQUE: Realtime transabdominal pelvic scan performed to identify the uterus and adnexa and as an overview of other pelvic structures, followed by transvaginal scan to provide greater detail of the uterus and adnexa, with static image documentation. FINDINGS: Uterus: 15.3 x 10.1 x 8.5 cm, volume 697 cc. Anteverted position. Masses: Large heterogeneous exophytic left uterine mass measures 10.3 x 8.3 x 9.0 cm, with distortion of the adjacent endometrium, with mild vascularity, consistent with large intramural leiomyoma with submucosal and subserosal components, containing calcification, previously 6.7 x 7.2 x 6.7 cm on 03/11/2014. Suspect additional leiomyomas. Endometrium: 13 mm. Normal. Cervix: Nabothian cysts. Fluid in the endocervical canal. Right Ovary: 3.7 x 2.7 x 2.8 cm, volume 5.2 cc. Normal echotexture and blood flow. Left Ovary: 2.4 x 2.0 x 2.3 cm, volume 5.7 cc. Normal echotexture and blood flow. Free Fluid: None. Other: None. IMPRESSION: 1. Leiomyomatous uterus including large intramural leiomyoma with distortion of the endometrium, measuring larger in the interval 2. Fluid in the endocervical canal RADIA
== END 2019-02-26 09:40 | disposition home or self-care (01) ==
LOC: DI 09:39
PROVIDERS: ATTEND Physician Assistant Medical
DX: D25.1 Intramural leiomyoma of uterus (principal)
CPT/HCPCS: 76830; 76856

== ENCOUNTER 2019-04-01 11:30 | Day surgery (SDC) | payer BC ==
[2019-04-01] MEDS ORDERED: fentaNYL 250 MCG/5 ML VIAL IVP ONE (11:31)
[2019-04-01] MEDS ORDERED: MIDAZOLAM 2 MG/2 ML VIAL IVP ONE (11:31)
[2019-04-01] MEDS ORDERED: LACTATED RINGERS 1,000 ML IV ONE ×4 (12:00→14:20)
[2019-04-01] MEDS ORDERED: LIDO GARGLE 30 ML BOTTLE ONE (13:13)
[2019-04-01] MEDS ORDERED: LIDO GARGLE 30 ML BOTTLE PO ONE (13:29)
[2019-04-01 15:18] VITALS: BP 145/84
== END 2019-04-01 11:31 | disposition home or self-care (01) ==
LOC: SDS 11:30
PROVIDERS: ATTEND Surgery
PROC: 0DB68ZX Excision of Stomach, Via Natural or Artificial Opening Endoscopic, Diagnostic (ICD-10-PCS; 2019-04-01)
PROC: 0DJD8ZZ Inspection of Lower Intestinal Tract, Via Natural or Artificial Opening Endoscopic (ICD-10-PCS; principal; 2019-04-01 13:15)
PROC: 0DB98ZX Excision of Duodenum, Via Natural or Artificial Opening Endoscopic, Diagnostic (ICD-10-PCS; 2019-04-01 13:15)
DX: Z12.11 Encounter for screening for malignant neoplasm of colon (principal); Z80.0 Family history of malignant neoplasm of digestive organs; K22.70 Barrett's esophagus without dysplasia; K21.9 Gastro-esophageal reflux disease without esophagitis; K64.8 Other hemorrhoids; I10 Essential (primary) hypertension; Z79.899 Other long term (current) drug therapy; Z87.891 Personal history of nicotine dependence

== ENCOUNTER 2019-05-15 08:00 | Outpatient (CLI) | payer BC ==
--- NOTE | 2019-05-15 08:27 | XRAY Report ---
Reason: LEFT ELBOW PAIN Procedure Date: 05/15/2019 Accession Number: [id number] / [id number] Procedure: WCP - Elbow 3 View LT CPT Code: Final Report FULL RESULT: EXAM: LEFT ELBOW RADIOGRAPHY EXAM DATE: 05/15/2019 08:00 AM. CLINICAL HISTORY: LEFT ELBOW PAIN. COMPARISON: None. TECHNIQUE: 3 views. FINDINGS: Bones: Normal. No fractures or bone lesions. Joints: Normal. No effusion. No subluxation. Soft Tissues: Normal. No soft tissue swelling. IMPRESSION: Normal elbow radiography. RADIA
--- NOTE | 2019-05-15 08:37 | XRAY Report ---
Reason: LEFT WRIST PAIN Procedure Date: 05/15/2019 Accession Number: [id number] / [id number] Procedure: WCP - Wrist 3 View LT CPT Code: Final Report FULL RESULT: EXAM: LEFT WRIST RADIOGRAPHY EXAM DATE: 05/15/2019 08:00 AM. CLINICAL HISTORY: LEFT WRIST PAIN. COMPARISON: None. TECHNIQUE: 3 views. FINDINGS: Bones: Normal. No fractures or bone lesions. Joints: Normal. No subluxations. Soft Tissues: Soft tissue swelling. IMPRESSION: Normal wrist radiography. RADIA
== END 2019-05-15 23:59 | disposition home or self-care (01) ==
LOC: DI.WCP 08:00
PROVIDERS: ATTEND Nurse Practitioner Family
DX: M25.522 Pain in left elbow (principal); M25.532 Pain in left wrist

== ENCOUNTER 2019-06-08 09:46 | Outpatient (CLI) | payer BC ==
--- NOTE | 2019-06-10 09:08 | Ultrasound Report ---
Reason: UTERINE FIBROIDS Procedure Date: 06/08/2019 Accession Number: [id number] / [id number] Procedure: US - Pelvic w/Transvaginal CPT Code: Final Report FULL RESULT: EXAM: PELVIC ULTRASOUND EXAM DATE: 06/08/2019 10:45 AM. CLINICAL HISTORY: Uterine fibroids. COMPARISON: PELVIC W/TRANSVAGINAL 02/26/2019 9:52 AM. TECHNIQUE: Realtime transabdominal pelvic scan performed to identify the uterus and adnexa and as an overview of other pelvic structures, followed by transvaginal scan to provide greater detail of the uterus and adnexa, with static image documentation. FINDINGS: Uterus: 17.9 x 9.7 x 7.61 cm, volume 691.1 cc. Anteverted position. Enlarged heterogeneous uterus containing multiple uterine fibroids. Masses: Multiple uterine fibroids are identified. [employer] fibroids include the followin. 2.7 x 2.6 x 4.2 cm posterior uterine body/lower uterine segment subserosal fibroid. 2. 2.6 x 2.2 x 3.4 cm posterior uterine body subserosal fibroid. 3. 3.1 x 2.2 x 3 cm fundal intramural fibroid. 4. 8.5 x 5.7 x 9.6 cm anterior uterine intramural fibroid. Endometrium: 15.5 mm. Not well seen due to the adjacent uterine fibroids. Given the limitations, no focal mass or thickening or abnormal blood flow noted. Cervix: No solid mass. Complex nabothian cyst measures 3.2 x 1.3 x 2.2 cm. Right Ovary: Ovary not seen. No adnexal abnormality. Limitation secondary to bowel gas. Left Ovary: 3.3 x 2.8 x 3.2 cm, volume 15.5 cc. Normal echotexture and blood flow. 2.4 x 1.7 x 1.7 cm anechoic left ovarian cyst. No wall irregularities, mural nodules or thickened septations. Free Fluid: None. Other: None. IMPRESSION: 1. Multiple uterine fibroids. Uterine volume measures 691.1 cc. Previous uterine volume measured 697 cc. 2. Endometrium measures up to 15.5 mm in thickness. No focal endometrial mass or polyp. Previously measured 13 mm in thickness. 3. Right ovary not seen. Normal left ovary with 2.4 cm simple left ovarian cyst. Normal bilateral adnexa. RADIA
== END 2019-06-08 09:47 | disposition home or self-care (01) ==
LOC: DI 09:46
PROVIDERS: ATTEND Obstetrics & Gynecology
DX: D25.9 Leiomyoma of uterus, unspecified (principal); N83.292 Other ovarian cyst, left side
CPT/HCPCS: 76830; 76856

== ENCOUNTER 2020-01-22 07:16 | Outpatient (CLI) | payer BC ==
[2020-01-22 11:55] LABS: BASOPHILS % (AUTO) 0.6 %; EOSINOPHILS # (AUTO) 0.1 10^3/uL (0.0-0.7); EOSINOPHILS % (AUTO) 1.1 %; HGB - HEMOGLOBIN 11.5 g/dL (12.0-16.0); LYMPHOCYTES # (AUTO) 2.2 10^3/uL (1.5-3.5); LYMPHOCYTES % (AUTO) 40.6 %; MEAN CORPUSCULAR HEMOGLOBIN 26.5 pg (27.0-31.0); MEAN CORPUSCULAR HGB CONC 31.3 g/dL (32.0-36.0); MEAN CORPUSCULAR VOLUME 84.6 fL (81.0-99.0); MEAN PLATELET VOLUME 9.1 fL (7.9-10.8); MONOCYTES # (AUTO) 0.7 10^3/uL (0.0-1.0); MONOCYTES % (AUTO) 13.3 %; NEUTROPHILS # (AUTO) 2.4 10^3/uL (1.5-6.6); PLT - PLATELET COUNT 368 10^3/uL (130-450); RED BLOOD COUNT 4.34 10^6/uL (4.20-5.40); WHITE BLOOD COUNT 5.4 x10^3/uL (4.8-10.8)
[2020-01-22 12:03] LABS: ALBUMIN 3.5 g/dL (3.2-5.5); ALKALINE PHOSPHATASE 42 IU/L (42-121); ALT ALANINE AMINOTRANSFERASE 22 IU/L (10-60); AST ASPARTATE AMINOTRANSFERASE 19 IU/L (10-42); BILIRUBIN,TOTAL 0.8 mg/dL (0.2-1.0); BUN - BLOOD UREA NITROGEN 15 mg/dL (6-20); CALCIUM 8.7 mg/dL (8.5-10.3); CARBON DIOXIDE - CO2 21 mmol/L (21-32); CHLORIDE 104 mmol/L (101-111); CHOL/HDL RATIO 5.7 (<4.4); CHOLESTEROL 187 mg/dL; CREATININE 0.8 mg/dL (0.4-1.0); GLUCOSE 99 mg/dL (70-100); HDL CHOLESTEROL 33 mg/dL; LDL CHOLESTEROL,CALCULATED 91 mg/dL; LDL/HDL RATIO 2.8 (<4.4); SODIUM 138 mmol/L (135-145); TOTAL PROTEIN 7.1 g/dL (6.7-8.2); VLDL CHOLESTEROL 63 mg/dL
== END 2020-01-22 23:59 | disposition home or self-care (01) ==
LOC: LAB.WCP 07:16
PROVIDERS: ATTEND Physician Assistant Medical
DX: Z00.00 Encounter for general adult medical examination without abnormal findings (principal); E78.5 Hyperlipidemia, unspecified; K21.9 Gastro-esophageal reflux disease without esophagitis
CPT/HCPCS: 36415; 80053; 80061; 83721; 84443; 85025

== ENCOUNTER 2020-02-22 11:02 | Outpatient (CLI) | payer BC ==
--- NOTE | 2020-02-23 15:49 | Mammography Report ---
BILATERAL DIGITAL SCREENING MAMMOGRAM 3D/2D: 02/22/2020 CLINICAL: Routine screening. Comparison is made to exams dated: 08/21/2018 mammogram, 08/01/2017 mammogram, and 07/24/2016 mammogram - [facility]. There are scattered fibroglandular elements in both breasts. No significant masses, calcifications, or other findings are seen in either breast. There has been no significant interval change. IMPRESSION: NEGATIVE There is no mammographic evidence of malignancy. A 1 year screening mammogram is recommended. This exam was interpreted at Station ID: [id number]. NOTE: For mammograms, a report in lay terms will be sent to the patient. Approximately 15% of breast malignancies will not be visualized mammographically. In the management of a palpable breast mass, a negative mammogram must not discourage biopsy of a clinically suspicious lesion. Electronically Signed By: Zak silver/juan carlos:02/22/2020 13:54:49 ACR BI-RADS Category 1: Negative 3341F PARENCHYMAL PATTERN: (A) - The breast(s) demonstrate(s) scattered fibroglandular densities. BI-RADS CATEGORY: (1) - 1 RECOMMENDATION: (ANNUAL) - Recommend routine annual screening mammography. [id number] 1 year screening LATERALITY: (B)
== END 2020-02-22 11:03 | disposition home or self-care (01) ==
LOC: DI.N 11:02
DX: Z12.31 Encounter for screening mammogram for malignant neoplasm of breast (principal)
CPT/HCPCS: 77063; 77067

== ENCOUNTER 2020-05-17 08:50 | Outpatient (CLI) | payer BC ==
--- NOTE | 2020-05-17 16:46 | XRAY Report ---
PROCEDURE: Ankle 2 View LT INDICATIONS: LEFT ANKLE PAIN TECHNIQUE: 2 views of the ankle were acquired. COMPARISON: X-ray foot 05/17/2020 FINDINGS: Bones: No fractures or dislocations. Ankle mortise is normally aligned. No suspicious bony lesions . Marked pes planus is noted. Osteophytes are noted along the dorsal aspect of the tarsal bones. Soft tissues: No tibiotalar joint effusion. Achilles tendon appears normal. IMPRESSION: Marked pes planus and degenerative change. No visualized acute fracture or dislocation. However, occult injury cannot be excluded. Recommend short interval imaging follow-up in 7-10 days as clinically indicated for additional evaluation. Reviewed by: Elizabeth Mullen MD on 05/17/2020 4:45 PM PST Approved by: Elizabeth Mullen MD on 05/17/2020 4:45 PM [facility] Station ID: [id number]
--- NOTE | 2020-05-17 16:46 | XRAY Report ---
PROCEDURE: Foot 2 View LT INDICATIONS: LEFT FOOT PAIN TECHNIQUE: 2 views of the foot were acquired. COMPARISON: X-ray ankle 05/17/2020 FINDINGS: Bones: No fractures or dislocations. No suspicious bony lesions. Marked pes planus is noted. Osteo phytes are noted at the tarsal bones. Soft tissues: No tibiotalar joint effusion. Achilles tendon appears normal. IMPRESSION: Pes planus and degenerative changes. No visualized acute fracture or dislocation. However, occult inj ury cannot be excluded. Recommend short interval imaging follow-up in 7-10 days as clinically indicat ed for additional evaluation. Reviewed by: Elizabeth Mullen MD on 05/17/2020 4:45 PM PST Approved by: Elizabeth Mullen MD on 05/17/2020 4:45 PM [facility] Station ID: [id number]
== END 2020-05-17 08:51 | disposition home or self-care (01) ==
LOC: DI.WCP 08:50
PROVIDERS: ATTEND Physician Assistant Medical
DX: M19.072 Primary osteoarthritis, left ankle and foot (principal); M21.42 Flat foot [pes planus] (acquired), left foot

== ENCOUNTER 2020-12-16 08:00 | Outpatient (CLI) | payer BC ==
--- NOTE | 2020-12-16 16:47 | XRAY Report ---
PROCEDURE: Chest 2 View X-Ray INDICATIONS: SHORTNESS OF BREATH TECHNIQUE: 2 view(s) of the chest. COMPARISON: None. FINDINGS: Surgical changes and devices: Single view chest 10/03/2017. Lungs and pleura: No pleural effusions or pneumothorax. Lungs are clear. Mediastinum: Mediastinal contours are normal. Heart size is normal. Bones and chest wall: No suspicious bony abnormalities. Soft tissues appear unremarkable. IMPRESSION: Normal for age, source of current symptoms is not seen. Reviewed by: Oscar Terry MD on 12/16/2020 4:46 PM PDT Approved by: Oscar Terry MD on 12/16/2020 4:46 PM PDT Station ID: [id number]
== END 2020-12-16 23:59 | disposition home or self-care (01) ==
LOC: DI.N 08:00
PROVIDERS: ATTEND Nurse Practitioner
DX: R06.02 Shortness of breath (principal)
CPT/HCPCS: 36415; 80053; 83880; 85025

== ENCOUNTER 2020-12-16 08:00 | Outpatient (CLI) | payer BC ==
[2020-12-16 18:16] LABS: BASOPHILS % (AUTO) 0.3 %; EOSINOPHILS # (AUTO) 0.1 10^3/uL (0.0-0.7); EOSINOPHILS % (AUTO) 0.9 %; HCT - HEMATOCRIT 44.1 % (37.0-47.0); HGB - HEMOGLOBIN 14.3 g/dL (12.0-16.0); LYMPHOCYTES # (AUTO) 2.7 10^3/uL (1.5-3.5); LYMPHOCYTES % (AUTO) 41.5 %; MEAN CORPUSCULAR HGB CONC 32.4 g/dL (32.0-36.0); MEAN CORPUSCULAR VOLUME 92.6 fL (81.0-99.0); MEAN PLATELET VOLUME 9.1 fL (7.9-10.8); MONOCYTES # (AUTO) 0.7 10^3/uL (0.0-1.0); MONOCYTES % (AUTO) 11.3 %; NEUTROPHILS # (AUTO) 2.9 10^3/uL (1.5-6.6); NEUTROPHILS % (AUTO) 45.5 %; PLT - PLATELET COUNT 311 10^3/uL (130-450); RED BLOOD COUNT 4.76 10^6/uL (4.20-5.40); RED CELL DISTRIBUTION WIDTH 12.5 % (12.0-15.0); WHITE BLOOD COUNT 6.5 x10^3/uL (4.8-10.8)
[2020-12-16 18:30] LABS: ALBUMIN 4.2 g/dL (3.2-5.5); ALBUMIN/GLOBULIN RATIO 1.1 (1.0-2.2); BILIRUBIN,TOTAL 0.8 mg/dL (0.2-1.0); CREATININE 0.7 mg/dL (0.4-1.0); POTASSIUM 3.7 mmol/L (3.5-5.0); TOTAL PROTEIN 7.9 g/dL (6.7-8.2)
== END 2020-12-16 23:59 | disposition home or self-care (01) ==
LOC: LAB.N 08:00
PROVIDERS: ATTEND Nurse Practitioner
DX: R06.02 Shortness of breath (principal)
CPT/HCPCS: 36415; 80053; 83880; 85025

== ENCOUNTER 2021-02-17 09:04 | Outpatient (CLI) | payer BC ==
[2021-02-17 11:48] LABS: BASOPHILS % (AUTO) 0.4 %; EOSINOPHILS # (AUTO) 0.1 10^3/uL (0.0-0.7); EOSINOPHILS % (AUTO) 1.2 %; HCT - HEMATOCRIT 42.3 % (37.0-47.0); HGB - HEMOGLOBIN 13.8 g/dL (12.0-16.0); LYMPHOCYTES # (AUTO) 2.3 10^3/uL (1.5-3.5); LYMPHOCYTES % (AUTO) 46.7 %; MEAN CORPUSCULAR HEMOGLOBIN 29.9 pg (27.0-31.0); MEAN CORPUSCULAR HGB CONC 32.6 g/dL (32.0-36.0); MEAN CORPUSCULAR VOLUME 91.8 fL (81.0-99.0); MEAN PLATELET VOLUME 9.4 fL (7.9-10.8); MONOCYTES # (AUTO) 0.5 10^3/uL (0.0-1.0); NEUTROPHILS # (AUTO) 1.9 10^3/uL (1.5-6.6); NEUTROPHILS % (AUTO) 40.3 %; PLT - PLATELET COUNT 287 10^3/uL (130-450); RED BLOOD COUNT 4.61 10^6/uL (4.20-5.40); RED CELL DISTRIBUTION WIDTH 12.5 % (12.0-15.0); WHITE BLOOD COUNT 4.8 x10^3/uL (4.8-10.8)
[2021-02-17 12:26] LABS: CHOL/HDL RATIO 6.3 (<4.4); CHOLESTEROL 238 mg/dL; HDL CHOLESTEROL 38 mg/dL; LDL CHOLESTEROL,CALCULATED 143 mg/dL; LDL/HDL RATIO 3.8 (<4.4); TRIGLYCERIDES 285 mg/dL; VLDL CHOLESTEROL 57 mg/dL
[2021-02-17 12:36] LABS: THYROID STIMULATING HORMONE 1.01 uIU/mL (0.34-5.60)
== END 2021-02-17 23:59 | disposition home or self-care (01) ==
LOC: LAB.WCP 09:04
PROVIDERS: ATTEND Physician Assistant Medical
DX: Z00.00 Encounter for general adult medical examination without abnormal findings (principal); E78.5 Hyperlipidemia, unspecified
CPT/HCPCS: 36415; 80061; 83721; 84443; 85025

== ENCOUNTER 2021-03-01 13:33 | Outpatient (CLI) | payer BC ==
--- NOTE | 2021-03-07 13:45 | Mammography Report ---
BILATERAL DIGITAL SCREENING MAMMOGRAM 3D/2D: 03/01/2021 CLINICAL: Routine screening. Comparison is made to exams dated: 02/22/2020 mammogram, 08/21/2018 mammogram, 08/01/2017 mammogram, mammogram, 06/15/2015 mammogram, and 03/10/2013 mammogram - [facility]. The re are scattered fibroglandular elements in both breasts. No significant masses, calcifications, or other findings are seen in either breast. There has been no significant interval change. IMPRESSION: NEGATIVE There is no mammographic evidence of malignancy. A 1 year screening mammogram is recommended. This exam was interpreted at Station ID: [id number]. NOTE: For mammograms, a report in lay terms will be sent to the patient. Approximately 15% of breast malignancies will not be visualized mammographically. In the management of a palpable breast mass, a negative mammogram must not discourage biopsy of a clinically suspicious lesion. Electronically Signed By: Dilan Adame M.D. dddagoberto/juan carlos:03/06/2021 16:24:29 ACR BI-RADS Category 1: Negative 3341F PARENCHYMAL PATTERN: (A) - The breast(s) demonstrate(s) scattered fibroglandular densities. BI-RADS CATEGORY: (1) - 1 RECOMMENDATION: (ANNUAL) - Recommend routine annual screening mammography. [id number] 1 year screening LATERALITY: (B)
== END 2021-03-01 13:34 | disposition home or self-care (01) ==
LOC: DI.N 13:33
DX: Z12.31 Encounter for screening mammogram for malignant neoplasm of breast (principal)

== ENCOUNTER 2021-05-05 12:24 | Outpatient (CLI) | payer BC ==
--- NOTE | 2021-05-08 15:48 | Ultrasound Report ---
ULTRASOUND OF LEFT AXILLA: 05/05/2021 CLINICAL: Palpable left axilla lump. Comparison is made to exams dated: 03/01/2021 mammogram, 02/22/2020 mammogram, 08/21/2018 mammogram, mammogram, 07/24/2016 mammogram, and 06/15/2015 mammogram - [facility]. Color flow and real-time ultrasound of the left axilla were performed. Rayo scale images of the stephanie l-time examination were reviewed. There is a benign normal lymph node in the left axillary tail. No abnormality which corresponds with the palpable abnormality is seen. IMPRESSION: BENIGN There is no sonographic evidence of malignancy. The normal lymph node is benign. There is no abnormality seen in the left axilla to correspond with the palpable abnormality in the le ft axilla, however, clinical followup is recommended. A 1 year screening mammogram is recommended. Future imaging is recommended as follows: 03/02/2022 sc reening mammogram. This exam was interpreted at Station ID: [id number]. Electronically Signed By: Buzz Poe acr/:05/05/2021 13:37:39 Ultrasound BI-RADS: 2 Benign BI-RADS CATEGORY: (2) - 2 RECOMMENDATION: (ANNUAL) - Recommend routine annual screening mammography. [id number] 1 year screening LATERALITY: (B)
== END 2021-05-05 12:25 | disposition home or self-care (01) ==
LOC: DI 12:24
PROVIDERS: ATTEND Physician Assistant Medical
DX: N63.32 Unspecified lump in axillary tail of the left breast (principal)

== ENCOUNTER 2022-01-16 18:20 | Outpatient (CLI) | payer BC ==
--- NOTE | 2022-01-17 22:33 | Ultrasound Report ---
PROCEDURE: Pelvic w/Transvaginal INDICATIONS: UTERINE FIBROIDS TECHNIQUE: Real-time scanning was performed of the pelvic organs, with image documentation. Additional endovagi nal scanning was necessary due to incomplete visualization of the adnexal and endometrial structures by transabdominal scanning. COMPARISON: Ultrasound pelvis 06/08/2019 FINDINGS: Uterus: Uterus is anteverted and enlarged in size at 12.6 x 7.1 x 7.7 cm. The myometrium is heterog eneous. Within the left anterior subserosal region there is a 7.5 x 5.6 x 7.4 cm focus of heterogene ous echogenicity previously measuring 8.5 x 5.7 x 9.6 cm. Similar focus in the mid posterior region m easures 3.1 x 2.8 x 2.6 cm compared to 2.7 x 2.6 x 4.2 cm and a mid posterior secondary focus is pres ent measuring 2.4 x 2.2 x 2.4 cm compared to 2.6 x 2.2 x 3.4 cm. The endometrium measures 14 mm in co mbined thickness. Ovaries: The right ovary measures 2.2 x 2.3 cm. The left ovary measures 2.3 x 1.7 x 2.3 cm, with a calculated ovarian volume of 4.9 cc. The ovaries have a normal sonographic appearance. Less than 12 follicles can be seen in each ovary. No adnexal masses are seen. Other: No pathologic free abdominal or pelvic fluid. IMPRESSION: Enlarged uterus with heterogeneous echogenicity demonstrating slight increases as well as decreases i n size compared to prior exam most suggestive of fibroids. Reviewed by: Elizabeth Mullen MD on 01/17/2022 10:31 PM PDT Approved by: Elizabeth Mullen MD on 01/17/2022 10:31 PM PDT Station ID: [id number]
--- NOTE | 2022-01-17 22:34 | Ultrasound Report ---
PROCEDURE: Pelvic Limited or F/U INDICATIONS: UTERINE FIBROIDS TECHNIQUE: Real-time transabdominal scanning was performed of the pelvic organs, with image documentation. COMPARISON: Pelvic ultrasound 06/08/2019 FINDINGS: Within the right inguinal region, there is a small focus of questionable fat-containing reducible her eh measuring less than 1 cm. IMPRESSION: Suspected fat-containing right inguinal hernia although poorly characterized. If this re douglas of concern, CT is recommended for further evaluation. Reviewed by: Elizabeth Mullen MD on 01/17/2022 10:33 PM PDT Approved by: Elizabeth Mullen MD on 01/17/2022 10:33 PM PDT Station ID: [id number]
== END 2022-01-16 18:21 | disposition home or self-care (01) ==
LOC: DI 18:20
PROVIDERS: ATTEND Physician Assistant Medical
DX: D25.9 Leiomyoma of uterus, unspecified (principal)

== ENCOUNTER 2022-01-27 07:59 | Outpatient (CLI) | payer BC ==
[2022-01-27 08:39] LABS: BASOPHILS % (AUTO) 0.5 %; EOSINOPHILS # (AUTO) 0.1 10^3/uL (0.0-0.7); EOSINOPHILS % (AUTO) 1.8 %; HCT - HEMATOCRIT 43.1 % (37.0-47.0); HGB - HEMOGLOBIN 14.1 g/dL (12.0-16.0); LYMPHOCYTES # (AUTO) 2.6 10^3/uL (1.5-3.5); LYMPHOCYTES % (AUTO) 46.7 %; MEAN CORPUSCULAR HEMOGLOBIN 29.9 pg (27.0-31.0); MEAN CORPUSCULAR HGB CONC 32.7 g/dL (32.0-36.0); MEAN CORPUSCULAR VOLUME 91.5 fL (81.0-99.0); MEAN PLATELET VOLUME 8.8 fL (7.9-10.8); MONOCYTES # (AUTO) 0.7 10^3/uL (0.0-1.0); MONOCYTES % (AUTO) 11.7 %; NEUTROPHILS # (AUTO) 2.2 10^3/uL (1.5-6.6); NEUTROPHILS % (AUTO) 38.9 %; PLT - PLATELET COUNT 306 10^3/uL (130-450); RED BLOOD COUNT 4.71 10^6/uL (4.20-5.40); RED CELL DISTRIBUTION WIDTH 12.9 % (12.0-15.0); WHITE BLOOD COUNT 5.6 x10^3/uL (4.8-10.8)
[2022-01-27 08:59] LABS: ALBUMIN 3.9 g/dL (3.2-5.5); ALBUMIN/GLOBULIN RATIO 1.1 (1.0-2.2); BILIRUBIN,TOTAL 0.7 mg/dL (0.2-1.0); CREATININE 0.8 mg/dL (0.4-1.0); POTASSIUM 4.2 mmol/L (3.5-5.0); TOTAL PROTEIN 7.3 g/dL (6.7-8.2)
[2022-01-27 09:06] LABS: THYROID STIMULATING HORMONE 1.32 uIU/mL (0.34-5.60)
== END 2022-01-27 08:00 | disposition home or self-care (01) ==
LOC: LAB 07:59
PROVIDERS: ATTEND Physician Assistant Medical
DX: Z00.00 Encounter for general adult medical examination without abnormal findings (principal)
CPT/HCPCS: 36415; 80053; 84443; 85025

== ENCOUNTER 2022-05-18 11:30 | Outpatient (CLI) | payer BC ==
[2022-05-18 11:47] LABS: CREATININE 0.8 mg/dL (0.4-1.0); POTASSIUM 4.4 mmol/L (3.5-5.0)
== END 2022-05-18 11:31 | disposition home or self-care (01) ==
LOC: LAB 11:30
PROVIDERS: ATTEND Physician Assistant Medical
DX: I10 Essential (primary) hypertension (principal)
CPT/HCPCS: 36415; 80048

== ENCOUNTER 2022-08-19 09:34 | Outpatient (CLI) | payer BC ==
[2022-08-19 10:04] LABS: CALCIUM 9.1 mg/dL (8.5-10.3); CREATININE 0.8 mg/dL (0.4-1.0); POTASSIUM 4.5 mmol/L (3.5-5.0)
== END 2022-08-19 09:35 | disposition home or self-care (01) ==
LOC: LAB 09:34
PROVIDERS: ATTEND Physician Assistant Medical
DX: I10 Essential (primary) hypertension (principal)
CPT/HCPCS: 36415; 80048

== ENCOUNTER 2023-03-02 07:32 | Outpatient (CLI) | payer BC ==
[2023-03-02 07:50] LABS: BASOPHILS % (AUTO) 0.4 %; EOSINOPHILS # (AUTO) 0.1 10^3/uL (0.0-0.7); EOSINOPHILS % (AUTO) 1.1 %; HCT - HEMATOCRIT 41.6 % (37.0-47.0); HGB - HEMOGLOBIN 13.7 g/dL (12.0-16.0); LYMPHOCYTES # (AUTO) 2.3 10^3/uL (1.5-3.5); LYMPHOCYTES % (AUTO) 42.6 %; MEAN CORPUSCULAR HEMOGLOBIN 29.7 pg (27.0-31.0); MEAN CORPUSCULAR HGB CONC 32.9 g/dL (32.0-36.0); MEAN CORPUSCULAR VOLUME 90.2 fL (81.0-99.0); MEAN PLATELET VOLUME 8.7 fL (7.9-10.8); MONOCYTES # (AUTO) 0.5 10^3/uL (0.0-1.0); MONOCYTES % (AUTO) 10.1 %; NEUTROPHILS # (AUTO) 2.4 10^3/uL (1.5-6.6); NEUTROPHILS % (AUTO) 45.4 %; PLT - PLATELET COUNT 300 10^3/uL (130-450); RED BLOOD COUNT 4.61 10^6/uL (4.20-5.40); RED CELL DISTRIBUTION WIDTH 12.4 % (12.0-15.0); WHITE BLOOD COUNT 5.3 x10^3/uL (4.8-10.8)
[2023-03-02 08:05] LABS: ALBUMIN 4.1 g/dL (3.2-5.5); ALBUMIN/GLOBULIN RATIO 1.2 (1.0-2.2); ALKALINE PHOSPHATASE 43 IU/L (42-121); ALT ALANINE AMINOTRANSFERASE 20 IU/L (10-60); AST ASPARTATE AMINOTRANSFERASE 15 IU/L (10-42); BILIRUBIN,TOTAL 0.6 mg/dL (0.2-1.0); BUN - BLOOD UREA NITROGEN 16 mg/dL (6-20); CALCIUM 9.2 mg/dL (8.5-10.3); CARBON DIOXIDE - CO2 30 mmol/L (21-32); CHLORIDE 105 mmol/L (101-111); CHOL/HDL RATIO 4.6 (<4.4); CHOLESTEROL 171 mg/dL; CREATININE 0.7 mg/dL (0.6-1.3); GFR - MDRD 87 (>89); GLUCOSE 100 mg/dL (74-104); HDL CHOLESTEROL 37 mg/dL; LDL CHOLESTEROL,CALCULATED 89 mg/dL; LDL/HDL RATIO 2.4 (<4.4); SODIUM 140 mmol/L (135-145); TOTAL PROTEIN 7.4 g/dL (6.4-8.9); TRIGLYCERIDES 225 mg/dL (48-352); VLDL CHOLESTEROL 45 mg/dL
[2023-03-02 08:20] LABS: THYROID STIMULATING HORMONE 1.27 uIU/mL (0.34-5.60)
== END 2023-03-02 07:33 | disposition home or self-care (01) ==
LOC: LAB 07:32
PROVIDERS: ATTEND Physician Assistant Medical
DX: Z00.00 Encounter for general adult medical examination without abnormal findings (principal); E78.5 Hyperlipidemia, unspecified; K21.9 Gastro-esophageal reflux disease without esophagitis
CPT/HCPCS: 36415; 80053; 80061; 83721; 84443; 85025

== ENCOUNTER 2023-03-15 08:00 | Outpatient (CLI) | payer BC ==
[2023-03-15 21:36] LABS: BACTERIAL VAGINOSIS DNA NEGATIVE (NEGATIVE); CANDIDA GLABRATA DNA NEGATIVE (NEGATIVE); CANDIDA GROUP DNA NEGATIVE (NEGATIVE); CANDIDA KRUSEI DNA NEGATIVE (NEGATIVE); TRICHOMONAS VAGINALIS DNA NEGATIVE (NEGATIVE)
== END 2023-03-15 23:59 | disposition home or self-care (01) ==
LOC: LAB.WC 08:00
PROVIDERS: ATTEND Obstetrics & Gynecology
DX: N76.0 Acute vaginitis (principal)
CPT/HCPCS: 81514

== ENCOUNTER 2023-03-22 11:20 | Outpatient (CLI) | payer BC ==
--- NOTE | 2023-03-28 10:57 | Mammography Report ---
BILATERAL DIGITAL SCREENING MAMMOGRAM 3D/2D: 03/22/2023 CLINICAL: Routine screening. Comparison is made to exams dated: 03/12/2022 mammogram, 03/01/2021 mammogram, 02/22/2020 mammogram, 08/21/2018 mammogram, 08/01/2017 mammogram, and 07/24/2016 mammogram - [facility]. There are scattered areas of fibroglandular density in both breasts (category b / 25%-50% glandular t issue). No significant masses, calcifications, or other findings are seen in either breast. IMPRESSION: NEGATIVE There is no mammographic evidence of malignancy. A 1 year screening mammogram is recommended. Based on the Tyrer Cuzick model (a risk assessment model) the patients lifetime risk is 8.1% and her 10 year risk is 2.3%. According to the ACR, ACS, and NCCN guidelines, an annual breast MRI exam nam g with mammogram is recommended if the patients lifetime risk is 20% or greater. This exam was interpreted at Station ID: [id number]. NOTE: For mammograms, a report in lay terms will be sent to the patient. Approximately 15% of breast malignancies will not be visualized mammographically. In the management of a palpable breast mass, a negative mammogram must not discourage biopsy of a clinically suspicious lesion. Electronically Signed By: Tory Raymundo M.D., PH.D prince/juan carlos:03/27/2023 13:22:24 letter sent: No_Letter ACR BI-RADS Category 1: Negative 3341F PARENCHYMAL PATTERN: (A) - The breast(s) demonstrate(s) scattered fibroglandular densities. BI-RADS CATEGORY: (1) - 1 Mammogram [id number] 1 year screening LATERALITY: (B)
== END 2023-03-22 11:21 | disposition home or self-care (01) ==
LOC: DI 11:20
DX: Z12.31 Encounter for screening mammogram for malignant neoplasm of breast (principal); R92.323 Mammographic fibroglandular density, bilateral breasts

== ENCOUNTER 2023-04-26 12:38 | Outpatient (CLI) | payer BC ==
--- NOTE | 2023-04-26 15:21 | Ultrasound Report ---
PROCEDURE: Pelvic w/Transvaginal INDICATIONS: FIBROIDS, UTERUS TECHNIQUE: Real-time scanning was performed of the pelvic organs, with image documentation. Additional endovagi nal scanning was necessary due to incomplete visualization of the adnexal and endometrial structures by transabdominal scanning. COMPARISON: Pelvic ultrasound 01/16/2022. FINDINGS: Uterus: Uterus is anteverted and enlarged at 8.8 x 7.9 x 1.4 cm. The myometrium is heterogeneous. The endometrium is not seen. Several subserosal fibroids are similar or decreased in size compared t o prior with the largest measuring 6.2 cm, previously 7.5 cm. Other fibroids measuring 3.4 cm, previo usly 3.1 cm and 1.3 cm, previously 2.4 cm. Cyst versus fibroid within the cervix measuring 1.5 cm. Ovaries: Not visualized. No adnexal masses are seen. Other: No pathologic free abdominal or pelvic fluid. IMPRESSION: Enlarged multi fibroid uterus which are similar or decreased in size compared to prior. Cyst versus f ibroid in the cervix measuring 1.5 cm. Reviewed by: Sathya Shirley MD on 04/26/2023 3:19 PM PST Approved by: Sathya Shirley MD on 04/26/2023 3:19 PM PST Station ID: [id number]
== END 2023-04-26 12:39 | disposition home or self-care (01) ==
LOC: DI 12:38
PROVIDERS: ATTEND Obstetrics & Gynecology
DX: D25.2 Subserosal leiomyoma of uterus (principal); D25.9 Leiomyoma of uterus, unspecified